=== PATIENT | female | born 1990 | race Caucasian/White ===

== ENCOUNTER → 2019-11-05 12:46 | Outpatient (CLI) | payer OTHER, SELFPAY ==
--- NOTE | ~2019-11-05 | US_ITS ---
EXAMINATION: US OB transvaginal DATE: 11/05/2019 13:19 INDICATION: Uncertain dates. . TECHNIQUE: Real-time transvaginal pelvic ultrasound was performed. COMPARISON: None. FINDINGS: The uterus measures 11.2 x 6.6 x 7.6 cm. There is an intrauterine gestational sac. A yolk sac is iden tified. The crown rump length measures 0.9 cm, which correlates with an estimated gestational age of 6 weeks and 6 day(s) (+/-) 4 day(s). heart motion is identified measuring 122 beats per minute (bpm) by M-mode Doppler. There are 2 small subchorionic hematomas. The right ovary measures 4. 1 x 1.7 x 3.2 cm. The left ovary measures 3.2 x 1.7 x 2.3 cm. There is no free fluid in the pelvis. IMPRESSION: 1. Single living intrauterine gestation with estimated date of delivery of 06/24/2020. 2. Two small subchorionic hematomas. Reviewed, dictated and finalized at location A. IMPRESSION: 1. Single living intrauterine gestation with estimated date of delivery of 06/24. 2. Two small subchorionic hematomas.
== END ==
PROVIDERS: Visit Provider Nurse Practitioner
DX: Z36.87 Encounter for antenatal screening for uncertain dates (principal); Z3A.00 Weeks of gestation of pregnancy not specified; O46.90 Antepartum hemorrhage, unspecified, unspecified trimester
CPT/HCPCS: 76817

== ENCOUNTER → 2019-11-26 14:30 | Outpatient (CLI) | payer OTHER, SELFPAY ==
--- NOTE | ~2019-11-26 | US_ITS ---
EXAMINATION: US OB limited EXAM DATE: 11/26/2019 15:17 INDICATION: Follow-up subchorionic hematoma. 1st trimester. TECHNIQUE: Pelvic obstetrical transabdominal sonogram was performed by a technologist. There are mu ltiple grayscale and Doppler images available for interpretation. Comparison is made to prior examina tion from 11/05/2019. FINDINGS: Uterus measures 13.0 x 7.4 x 9.9 cm. There is intrauterine gestation sac. pole with heart rate confirmed at 162 beats per minute. motion was also observed. There are 2 subchorion ic hematomas, one on the left side measuring 2.7 x 1.2 x 0.7 cm (previously 1.7 x 1.3 x 0.7), and on the superior right measuring 2.4 x 1.4 x 1.3 cm (previously 1.6 x 1.3 x 1.0). IMPRESSION: 2 small subchorionic hematomas, measurements slightly increased along with growth in the viable pole. Reviewed, dictated and finalized at location B. IMPRESSION: 2 small subchorionic hematomas, measurements slightly increased al elva with growth in the viable pole.
== END ==
PROVIDERS: PCP Family Medicine; Visit Provider Obstetrics & Gynecology Gynecology
DX: O46.90 Antepartum hemorrhage, unspecified, unspecified trimester (principal); Z3A.00 Weeks of gestation of pregnancy not specified
CPT/HCPCS: 76815

== ENCOUNTER → 2019-12-25 14:37 | Outpatient (CLI) | payer OTHER, SELFPAY ==
--- NOTE | ~2019-12-25 | US_ITS ---
EXAMINATION: US OB limited DATE: 12/25/2019 15:05 INDICATION: Subchorionic hematoma, second trimester TECHNIQUE: Real-time ultrasound of the pelvis was performed. The interpreting radiologist was not pre sent for the study. COMPARISON: 11/26/2019 FINDINGS: There is a single living fetus. The uterus measures 16.4 x 9.1 x 13.5 cm. The placenta is a nterior. No persistent subchorionic hematoma is identified. cardiac activity and movement are noted. heart rate is 151 beats per minute (bpm). The amniotic fluid index is subjectively normal. IMPRESSION: 1. No persistent subchorionic hematoma identified. Reviewed, dictated and finalized at location A. TRICAL RESEARCH ENGINEER
== END ==
PROVIDERS: Visit Provider Obstetrics & Gynecology Gynecology
DX: O46.90 Antepartum hemorrhage, unspecified, unspecified trimester (principal); Z3A.00 Weeks of gestation of pregnancy not specified
CPT/HCPCS: 76815

== ENCOUNTER → 2020-01-20 15:58 | Outpatient (CLI) | payer OTHER, SELFPAY ==
--- NOTE | ~2020-01-20 | US_ITS ---
EXAMINATION: US OB >= 14 weeks Fetus DATE: 01/20/2020 16:33 INDICATION: survey TECHNIQUE: Multiple obstetric sonographic images performed. FINDINGS: No prior studies for comparison. There is a single living fetus in vertex presentation. The placenta is anterior without placenta pre via. Placental margin is 2.4 cm to the cervix. Amniotic fluid volume is normal. cardiac activity and movement is noted with a heart rate of 159 beats per minute. The following anatomy was identified as normal: 4 chamber heart 3 vessel cord cord insertion kidneys urinary bladder stomach spine diaphragm ventricles cisterna magna cerebellum The upper lip is not visualized. The following biometric data were obtained: BPD: 38mm corresponds to gestational age 17 weeks 5 days. Head circumference: 149 mm corresponds to gestational age 18 weeks 0 days. Abdominal circumference: 126 mm corresponds to gestational age 18 weeks 1 days. Femur length: 25 mm corresponds to gestational age 17 weeks 3 days. Head circumference to abdominal circumference ratio: 1.18 (normal range for expected gestational age is 1.08-1.28). Estimated weight: 212 grams +/- 32 grams using Hadlock method. IMPRESSION: 1: Single living intrauterine with an estimated gestational age of 17weeks 5days by initial ultrasound measurements, with an EDC of 06/24/2020 in 06/24/2020 presentation. 2. Survey limited for evaluation of the upper lip. Otherwise, unremarkable survey. 3: Low-lying anterior placenta measures 2.4 cm to the cervix. Reviewed, dictated and finalized at location B. OGRAPHIC ARTIST IMPRESSION: 1: Single living intrauterine with an estimated gestational age of 17 weeks 5days by initial ultrasound measurements, with an EDC of 06/24/2020 in presentation. 2. Survey limited for evaluation of the upper lip. Otherwise, unremarkable vesna vey. 3: Low-lying anterior placenta measures 2.4 cm to the cervix.
== END ==
PROVIDERS: Visit Provider Obstetrics & Gynecology Gynecology
DX: O44.42 Low lying placenta NOS or without hemorrhage, second trimester (principal); Z3A.17 17 weeks gestation of pregnancy
CPT/HCPCS: 76805

== ENCOUNTER → 2020-02-17 15:50 | Outpatient (CLI) | payer OTHER, SELFPAY ==
--- NOTE | ~2020-02-17 | US_ITS ---
EXAMINATION: US OB limited DATE: 02/17/2020 16:21 INDICATION: Low-lying placenta, second trimester TECHNIQUE: Real-time ultrasound of the pelvis was performed. The interpreting radiologist was not pre sent for the study. COMPARISON: 01/20/2020 FINDINGS: There is a single living fetus in vertex presentation. The placenta is anterior and 11 cm f rom the internal cervical os. cardiac activity and movement are noted. heart rate i s 149 beats per minute (bpm). The amniotic fluid index is subjectively normal. The upper lip ap pears normal. IMPRESSION: 1. Single living fetus in vertex presentation. 2. Normal placenta location. 3. Normal-appearing upper lip. Reviewed, dictated and finalized at location A. LY CHAIN SPECIALIST
== END ==
PROVIDERS: Visit Provider Obstetrics & Gynecology Gynecology
DX: O44.10 Complete placenta previa with hemorrhage, unspecified trimester (principal); Z3A.00 Weeks of gestation of pregnancy not specified
CPT/HCPCS: 76815

== ENCOUNTER 2020-06-05 18:34 | Observation (INO) | payer OTHER, SELFPAY ==
[2020-06-05 18:46] VITALS: BP 132/62; PULSE 140
[2020-06-05 18:50] VITALS: BMI 32.4
[2020-06-05 19:11] VITALS: TEMP 37.1
--- NOTE | 2020-06-05 20:42 | OBADM ---
This patient, Savita Owens, admitted to the OB room Labor/Delivery/Recovery 104 for observation. Patient/family oriented to hospital policies and general routines including ID bracelet, bed and alarms, visiting hours, pain management, procedures, bathroom and other care routines, personal items, smoking policy, room service/diet, and visiting hours. Patient/Family are encouraged to report perceived risks to care and to ask questions if they do not understand what they are told or what they should do.
--- NOTE | 2020-06-14 09:59 | PM.OBTRLD ---
OB - Triage/Final Diagnosis Visit Information Reason for evaluation: other (leaking fluid vaginally) Comments/Additional reasons for admission: I have assessed the risk for this patient, Savita José Miguel Owens, and determined that she would benefit from observation care.
== END 2020-06-05 20:40 | disposition home or self-care (01) ==
PROVIDERS: Admitting Provider Obstetrics & Gynecology Gynecology; PCP Family Medicine; Visit Provider Obstetrics & Gynecology Gynecology
DX: O42.12 Full-term premature rupture of membranes, onset of labor more than 24 hours following rupture (principal); Z3A.37 37 weeks gestation of pregnancy
CPT/HCPCS: 84112; G0378; G0379

== ENCOUNTER 2020-06-06 02:04 | Inpatient (IN) | payer OTHER, SELFPAY ==
[2020-06-06] VITALS (31 sets, daily range): BP systolic 83–148; BP diastolic 44–120; PULSE 67–133; RESP 16–18; TEMP 36.4–37.3; O2SAT 98–100; BMI 32.8
[2020-06-06 02:32] LABS: Basophils Percent Auto 0.1 % (0.2-1.2); Eosinophils Percent Auto 0.2 % (0-4.4); Hemoglobin 10.6 g/dL (12.0-15.0); Immature Granulocyte Absolute 0.07 K/mm3 (0.00-0.031); Immature Granulocyte Percent A 0.7 % (0-0.5); Lymphocytes Absolute Auto 3.93 K/mm3 (0.9-3.2); Lymphocytes Percent Auto 41.5 % (18.3-44.2); Mean Corpuscular HGB Conc 32.1 g/dl (32-36); Mean Corpuscular Volume 80.9 fl (80-100); Mean Platelet Volume 10.1 fl (7.4-10.4); Monocytes Absolute Auto 0.6 K/mm3 (0.1-0.6); Monocytes Percent Auto 6.5 % (2.6-8.5); Neutrophils Absolute Auto 4.8 K/mm3 (1.3-6.7); Platelet Count Result 145 k/mm3 (150-375); Red Blood Count 4.08 M/mm3 (4.2-5.4); Red Cell Distribution Width 14.1 % (11.5-14.5); White Blood Count 9.5 K/mm3 (4.5-10.0)
--- NOTE | 2020-06-06 02:36 | WPDOBADMIT ---
Obstetrics - Admit Note Admission Note: record reviewed. No pertinent additions to the history and/or any subsequent changes in the physical findings that are not consistent with the expected course of the were found. Additions to the history and/or subsequent changes in the physical findings follow. Here at 37 3/7 wks in active labor. 7-8 cm on arrival. On my arrival, offered to AROM and patient would like to try to get epidural first. FHTs reactive.
[2020-06-06] MEDS: LACTATED RINGERS 1,000 ML 125 ML IV CONT (03:04)
--- NOTE | 2020-06-06 03:04 | WPDANESEPP ---
Anes - Eval Pre Procedure Procedure: labor epidural Date/Time: 06/06/20 03:04 Surgeon: luis Pre Op Diagnosis: Ctxns Patient Data Age: 29 Gender: F Height: 1.7 m Weight: 95 kg Last Vital Signs Pulse 99 06/06/20 03:03 BP 120/82 06/06/20 03:03 Pulse Ox 100 06/06/20 03:01 Allergies Allergy/AdvReac Type Severity Reaction Status Date / Time morphine Allergy Unknown Hives Verified 05/25/20 15:35 Sulfa (Sulfonamide Allergy Unknown Unknown Verified 05/25/20 15:35 Antibiotics) Home Medications Medication Instructions Recorded Confirmed Type ergocalciferol (vitamin D2) 1,250 mcg PO 2XW 05/25/20 05/25/20 History [Vitamin D2] prenat.vits,seng,qpk-rdjk-agaoh 1 tablet PO DAILY 05/25/20 05/25/20 History Laboratory Tests 06/06/20 06/06/20 02:26 02:26 WBC 9.5 K/mm3 K/mm3 (4.5-10.0) RBC 4.08 M/mm3 L M/mm3 (4.2-5.4) Hgb 10.6 g/dL L g/dL (12.0-15.0) Hct 33.0 % L % (37.0-47.0) MCV 80.9 fl fl (80-100) MCH 26.0 pg pg (26-34) MCHC 32.1 g/dl g/dl (32-36) RDW 14.1 % % (11.5-14.5) Plt Count 145 k/mm3 L k/mm3 (150-375) MPV 10.1 fl fl (7.4-10.4) Immature Gran % (Auto) 0.7 % H % (0-0.5) Neut % (Auto) 51.0 % % (45.5-73.1) Lymph % (Auto) 41.5 % % (18.3-44.2) [place] % (Auto) 6.5 % % (2.6-8.5) Eos % (Auto) 0.2 % % (0-4.4) Baso % (Auto) 0.1 % L % (0.2-1.2) Lymph # (Auto) 3.93 K/mm3 H K/mm3 (0.9-3.2) [place] # (Auto) 0.6 K/mm3 K/mm3 (0.1-0.6) Eos # (Auto) 0.0 K/mm3 K/mm3 (0-0.3) Baso # (Auto) 0.0 K/mm3 K/mm3 (0.0-0.1) Abs Immat Gran (auto) 0.07 K/mm3 H K/mm3 (0.00-0.031) Absolute Neuts (auto) 4.8 K/mm3 K/mm3 (1.3-6.7) Absolute Nucleated RBC 0.0 K/mm3 K/mm3 (0.0-0.012) Nucleated RBC % 0.0 % % (0.0-0.2) RPR Pending Patient hx anesthesia problems: none Family hx anesthesia problems: none PMFSH Past Medical History Medical History (Updated 06/06/20 @ 03:06 by Veronique Rodriguez CRNA) Migraines Family History Family History (Updated 05/25/20 @ 15:38 by Rhina Pena RN) Mother Patient's mother is in good health Family history of irritable bowel syndrome Family history of migraine headaches Father Patient's father is in good health Sibling Patient's brother is in good health Family history of migraine headaches Social History Social History Smoking status: Never smoker Alcohol intake: never Substance use: never Spiritual care concerns: No Exam Day of Procedure 06/06/20 03:04
[2020-06-06] MEDS: OXYTOCIN 30 UNITS/NS 500 ML 30 UNITS/500 ML BAG 999 UNITS IV CONT (03:17)
--- NOTE | 2020-06-06 03:24 | PM.OBPRVD ---
OB - Delivery Note Procedure Delivery date: 06/06/20 Procedure: Intrapartal events: Abruptio Placenta (noted portwine fluid upon rupture; placental edge with large clot at delivery) Induction method: none Delivery monitor: external FHT and external uterine Route of delivery: Laceration Description: Perineal - 1st Degree Delivery repair: vicryl (3-0) Specimen: Yes (placenta) Quantitative Blood Loss (ml): 100 Anesthesia type: Epidural Disposition: floor Baby Date of : 06/06/20 Weeks of gestation at delivery: 37 Infant gender: Female presentation: vertex position: Left Occiput Anterior Placenta delivery description: Spontaneous (abruption noted) cord vessel description: 3 Vessels score one minute: 8 score five minutes: 9
--- NOTE | 2020-06-06 03:27 | PM.OBDSVD ---
DS: Admitting Diagnosis Admitting Diagnosis Admitting Diagnosis: IUP 37 3/7 wks in labor requests sterilization DS: Discharge Diagnosis Discharge Diagnosis (1) 37 weeks gestation of : Code(s): Z3A.37 - 37 weeks gestation of Status: Acute (2) (normal spontaneous vaginal delivery): Code(s): O80 - Encounter for full-term uncomplicated delivery Status: Inactive (3) Placental abruption: Code(s): O45.90 - Premature separation of placenta, unspecified, unspecified trimester Status: Acute (4) Encounter for sterilization: Code(s): Z30.2 - Encounter for sterilization Status: Acute OB - DS: Summary OB Procedures : Ultrasound OB Procedures Intrapartum: Spontaneous Vag Delivery OB Procedures: : P.P. tubal ligation Peripartum Data Infant Delivery Method: Natural Vaginal Laceration Description: Perineal - 1st Degree complications: none Status at Discharge Functional status at discharge: independent ambulation Overall status at discharge: patient is progressing back to baseline Time Spent with Patient Time attestation: Total time spent providing and/or coordinating discharge services: DS: Data Data Completed and Pending Labs on day of discharge: Labs from last 24 hours 06/06/20 06/06/20 02:26 02:26 WBC 9.5 RBC 4.08 L Hgb 10.6 L Hct 33.0 L MCV 80.9 MCH 26.0 MCHC 32.1 RDW 14.1 Plt Count 145 L MPV 10.1 Immature Gran % (Auto) 0.7 H Neut % (Auto) 51.0 Lymph % (Auto) 41.5 [place] % (Auto) 6.5 Eos % (Auto) 0.2 Baso % (Auto) 0.1 L Lymph # (Auto) 3.93 H [place] # (Auto) 0.6 Eos # (Auto) 0.0 Baso # (Auto) 0.0 Abs Immat Gran (auto) 0.07 H Absolute Neuts (auto) 4.8 Absolute Nucleated RBC 0.0 Nucleated RBC % 0.0 RPR Pending Discharge Plan Discharge Attending physician on discharge: Nadja Flores Consulting providers: Regan Rehman Discharging Clinician: Nadja Flores Anticipated Discharge Date/Time: 06/08/20 07:28 Patient Disposition: Home, Self-Care Activity: may shower, may drive after 2 weeks and pelvic rest Diet: regular Discharge Instructions: Education: Mom and Baby Guide Given to: Mother Follow-Up: Call your delivering provider's office for an appointment to be seen in: 1 Week Mom and baby should come to the [facility] for the follow-up appointment. Appointment Date/Time: June 09, 2020 at 10:00 am What to expect at your follow-up visit: Blood Pressure Check Physical Assessment Call [phone] if you are unable to keep your appointment time. BREAST CARE: * Wear a snug supportive bra. * For engorgement discomfort: Breast Feeding: * Apply warm moist washcloths * Express milk as needed to relieve engorgement * Wear loose clothing Bottle Feeding: * May apply ice packs * For sore nipples: * Identify correct latch-on * Apply warm moist washcloths before and after nursing * Air dry nipples after nursing * May apply Lansinoh cream to nipples ABDOMINAL INCISION: (if applicable) * Allow incision to air dry * Do NOT use lotions for powders on your incision * When showering, allow soap and water to run over the incision, but do not wash incision EPISIOTOMY/PERINEAL CARE: * Until bleeding stops, use your jhonny bottle after urinating * Change your pad frequently throughout the day * You may take sitz baths several times a day (fill your bathtub with warm water and soak for 20 minutes.) Do NOT bathe in the water * No tub baths until seen by your physician - You may shower ACTIVITY: * Rest as much as possible. * Do not exercise or lift anything heavier than your baby (such as laundry or other children.) * Avoid stairs or driving as much as possible. * Do not put anything into the vagina. No douching, [place]
[2020-06-06] MEDS: OXYTOCIN 30 UNITS/NS 500 ML 30 UNITS/500 ML BAG 125 UNITS IV CONT (03:46)
[2020-06-06] MEDS: WITCH HAZEL 40 PADS 1 PAD TOPICAL (04:17)
[2020-06-06] MEDS: LANOLIN (LANSINOH) 7.5 GM CREAM 1 APPLIC TOPICAL (04:17)
[2020-06-06] MEDS: BENZOCAINE 20% AER SPR (*SP) 56 GM CAN 1 SPRAY TOPICAL (04:17)
--- NOTE | 2020-06-06 04:29 | LDADM ---
This patient, Savita Owens, was admitted to Labor/Delivery/Recovery 104 on 06/06/20 at 02:04. Plans for labor, pain management and were discussed with patient. Patient/family oriented to hospital policies and general routines including ID bracelet, bed and alarms, visiting hours, pain management, procedures, bathroom and other care routines, personal items, smoking policy, room service/diet and guest tray routines, infant security routines, and visiting hours. Patient/Family are encouraged to report perceived risks to care and to ask questions if they do not understand what they are told or what they should do. See OBIX for further documentation.
[2020-06-06] MEDS: MULTIVIT/MIN/PREN/FOL AC/IRON TABLET 1 TAB PO (06:06)
[2020-06-06] MEDS: IBUPROFEN 600 MG TABLET PO ×3 (06:07→19:06)
--- NOTE | 2020-06-06 06:28 | OBPPTRN ---
06/06/2020 at 0550 Patient transferred to post room #284. Support person present. Oriented to information and emergency/call light. Patient verbalizes understanding of waiting for a nurse before ambulating.
--- NOTE | 2020-06-06 07:00 | PC.NURSE ---
PT introductions made and plan of care discussed per post , pain management, breast feeding, daily care activities. PT educated through one on one discussion and mother baby care guide. PT and spouse are the recipients. no barriers to learning identified. PT verbalized understanding of such care.
[2020-06-06] MEDS: ACETAMINOPHEN 325 MG TABLET 650 MG PO (09:44)
[2020-06-06] MEDS: DOCUSATE SODIUM 100 MG CAPSULE PO (09:45)
--- NOTE | 2020-06-06 13:59 | WPDANLDPN2 ---
Anes-Prog Note L&D Date/Time: 06/06/20 13:59 Comfortable throughout: labor and delivery Neuraxial method: epidural Epidural/Spinal procedure site: clean & non-tender (epidural still in place for procedure tomorrow 06/07/20) Neuro status: Neuro function grossly intact. Cardiovascular status: normal Respiratory status: normal Airway patency: baseline Mental status: baseline Post-Op hydration status: normal Vital Signs: Last Vital Signs Temp 36.9 C 06/06/20 12:30 Pulse 78 06/06/20 12:30 Resp 18 06/06/20 12:30 BP 104/63 06/06/20 12:30 Pulse Ox 98 06/06/20 12:30 Pain score (VAS): 1 I/O: Intake & Output 06/05/20 06/06/20 06/06/20 23:59 07:59 15:59 Output Total 120 Balance -120 Post-procedural complaints: none Patient feedback: Patient satisfied with anesthetic care. epidural was still in place for a procedure patient will have on 06/07/20
[2020-06-07] VITALS (14 sets, daily range): BP systolic 96–124; BP diastolic 57–81; PULSE 60–89; RESP 14–18; TEMP 36.2–37; O2SAT 96–100
[2020-06-07 05:33] LABS: Hematocrit 28.4 % (37.0-47.0)
[2020-06-07 06:39] LABS: Rapid Plasma Reagin Non-Reactive (NonReactive)
--- NOTE | 2020-06-07 07:34 | PC.NURSE ---
Pt. transferred to pre-op per stretcher for bilateral tubal ligation. All consents signed. Pt. comfortable. No questions or concerns voiced.
[2020-06-07] MEDS: LACTATED RINGERS 1,000 ML 30 ML IV CONT ×3 (07:45→09:48)
--- NOTE | 2020-06-07 07:48 | WPDANESEFPP ---
Anes - Eval Final PreProcedure Day of Procedure 06/07/20 07:48 Patient weight: obese Heart: regular rate and rhythm Lungs: clear to auscultation Airway: Mallampati scale class 1 Neurological: alert and oriented Last oral intake: >/= 8 hours ASA classification: II Emergent: no Anesthetic plan: proceed Anesthesia type and monitoring: regional (existing, 11 cm at skin confirmed) epidural and standard monitoring Informed Consent: The patient's anesthetic plan of using existing epidural and its attendant risks and benefits were discussed with the patient/family/POA. Questions were solicited and answers provided to the satisfaction of the patient/family/POA.
--- NOTE | 2020-06-07 07:53 | WPDANLDPN2 ---
Anes-Prog Note L&D Date/Time: 06/07/20 07:53 Comfortable throughout: labor and delivery Neuraxial method: epidural Epidural/Spinal procedure site: clean & non-tender (epidural still in place for procedure tomorrow 06/07/20) Neuro status: Neuro function grossly intact. Cardiovascular status: normal Respiratory status: normal Airway patency: baseline Mental status: baseline Post-Op hydration status: normal Vital Signs: Last Vital Signs Temp 36.8 C 06/07/20 07:31 Pulse 60 06/07/20 07:31 Resp 18 06/07/20 07:31 BP 108/71 06/07/20 07:31 Pulse Ox 99 06/07/20 07:31 Pain score (VAS): 0 Post-procedural complaints: none Patient feedback: Patient satisfied with anesthetic care.
--- NOTE | 2020-06-07 08:03 | PM.IMHP ---
H&P: HPI History of Present Illness Date/Time: 06/07/20 08:03 Patient is a 29 yo who is PPD1 and requests sterilization. Patient informed of the permanent, irreversible nature of pp tubal. Risks of infection, bleeding, injury to internal organs as well as risk of failure with increased ectopic were reviewed. Patient agrees to proceed. Chief Complaint: requests steriliaztion Review of Systems Review of Systems: Narrative: not repeated day of surgery; patient states no changes in status PMFSH Past Medical History Medical History (Updated 06/07/20 @ 08:06 by Nadja Flores MD) Depression Kidney stone Migraines (normal spontaneous vaginal delivery) x 5 Surgical History Surgical History (Updated 06/07/20 @ 08:06 by Nadja Flores MD) S/P laparoscopic cholecystectomy Family History Family History (Updated 05/25/20 @ 15:38 by Rhina Pena RN) Mother Patient's mother is in good health Family history of irritable bowel syndrome Family history of migraine headaches Father Patient's father is in good health Sibling Patient's brother is in good health Family history of migraine headaches Social History Social History Smoking status: Never smoker Alcohol intake: never Substance use: never Spiritual care concerns: No Meds Home Medications and Allergies Home Medications Medication Instructions Recorded Confirmed Type ergocalciferol (vitamin D2) 1,250 mcg PO 2XW 05/25/20 05/25/20 History [Vitamin D2] prenat.vits,seng,tip-ufcp-bsxmc 1 tablet PO DAILY 05/25/20 05/25/20 History Allergies Allergy/AdvReac Type Severity Reaction Status Date / Time morphine Allergy Unknown Hives Verified 05/25/20 15:35 Sulfa (Sulfonamide Allergy Unknown Unknown Verified 05/25/20 15:35 Antibiotics) Vital Signs Vital Signs - 24 hr 06/06/20 09:44 06/06/20 12:30 06/06/20 19:00 Temperature 99.1 F 98.5 F 97.9 F Pulse Rate 92 78 80 Respiratory Rate 18 18 16 Blood Pressure 114/71 104/63 109/76 Pulse Oximetry 99 98 100 06/07/20 00:00 06/07/20 07:31 06/07/20 07:41 Temperature 97.8 F 98.2 F 97.2 F L Pulse Rate 69 60 72 Respiratory Rate 16 18 16 Blood Pressure 100/64 108/71 109/73 Pulse Oximetry 98 99 100 Exam Const: General: comfortable and no acute distress GI: GI Palp: No abdominal tenderness, Yes Soft to palpation and Yes Other GI palpation findings present (fundus firm U-2) H&P: Results Labs Labs: Short CBC 06/07/20 Range/Units 04:24 Hgb 9.0 L (12.0-15.0) g/dL Hct 28.4 L (37.0-47.0) % Assessment and Plan Assessment and plan (1) Encounter for sterilization: Code(s): Z30.2 - Encounter for sterilization Status: Acute Assessment and Plan: will proceed with tubal ligation
--- NOTE | 2020-06-07 08:08 | WPDHPUPDATE1 ---
History and Physical Update Update Date/Time: 06/07/20 08:08 History and Physical has been reviewed, including an updated exam of the patient. There are NO changes in the patient's condition. Risks, benefits, and alternatives have been discussed and questions answered. Patient agrees to proceed with procedure.
--- NOTE | 2020-06-07 09:36 | PM.PROC ---
Procedure Note - Detailed Date of procedure: 06/07/20 Pre-op diagnosis: Ctxns requests sterilization Post-op diagnosis: same Procedure performed: PP BTL Description of procedure: The patient was taken to the operating room and placed under epidural anesthesia. She was prepped and draped in the usual sterile fashion in the dorsal supine position. Once anesthesia was deemed adequate, a vertical skin incision was made at the base of the umbilicus. This incision was carried down to the underlying layer of fascia which was grasped with an Thumbtacksner x2 and entered with Lugo scissors. The incision is extended superiorly and inferiorly. The peritoneum was tented and entered with Metzenbaum is a the incision is extended with blunt traction. The retractors are placed intraperitoneally and the right tube identified, grasped with a Bree, and the distal 2/3 of the tube are crossclamped with a Z clamp. The tube is excised. The pedicle was tied off using 0 Vicryl in a Kory stitch. The identical procedure was performed on the left side. Good hemostasis is noted at both tubal sites. The fascia is closed using 0 Vicryl in a running fashion. Subcutaneous tissues were made hemostatic using Bovie. Skin incision is closed with 4 0 Vicryl in a subcuticular fashion and Dermaflex was placed over the incision. Sponge, needle, and instrument counts are correct per the OR staff. Patient was taken to recovery in stable condition. Anesthesia: epidural Surgeon: Nadja Flores MD Estimated blood loss (mL): 5 Drains: No Packing: No Pathology: yes (bilateral tubes) Complications: No immediate complications Condition: stable Disposition: PACU Findings: normal appearing tubes and ovaries
--- NOTE | 2020-06-07 11:05 | PC.NURSE ---
Pt. return from PACU per stretcher.
[2020-06-07] MEDS: ACETAMINOPHEN 325 MG TABLET 650 MG PO (11:48)
[2020-06-07] MEDS: IBUPROFEN 600 MG TABLET PO ×2 (11:49→17:58)
[2020-06-07] MEDS: BENZOCAINE 20% AER SPR (*SP) 56 GM CAN 1 SPRAY TOPICAL (11:51)
[2020-06-07] MEDS: WITCH HAZEL 40 PADS 1 PAD TOPICAL (11:51)
[2020-06-07] MEDS: HYDROcodone/acetaminophen (*CRX) 10-325 MG TABLET 1 TAB PO (13:25)
--- NOTE | 2020-06-07 15:00 | PC.NURSE ---
Patient was given the opportunity to view the discharge video Mother & Baby Care, The First Two Weeks and to ask questions. Patient declined viewing the video and has been given the mother/baby guide for home reference.
--- NOTE | 2020-06-07 16:44 | PC.NURSE ---
Self care and infant care discharge instructions given including follow up visit date and time. Mother verbalized understanding. No questions or concerns voiced. at side.
[2020-06-07] MEDS: DOCUSATE SODIUM 100 MG CAPSULE PO (17:58)
[2020-06-07] MEDS: HYDROcodone/acetaminophen (*CRX) 5-325 MG TABLET 1 TAB PO (17:58)
[2020-06-07] MEDS: SIMETHICONE 80 MG TAB.CHEW PO (17:58)
[2020-06-09 10:25] VITALS: BP 110/72; PULSE 77; RESP 18; TEMP 36.9; O2SAT 100
== END 2020-06-07 18:12 | disposition home or self-care (01) | DRG 796 ==
LOC: ANHLDR 03:29 → ANHOB2 05:52
PROVIDERS: Admitting Provider Obstetrics & Gynecology Gynecology; PCP Family Medicine; Visit Provider Obstetrics & Gynecology Gynecology
PROC: 0UB70ZZ Excision of Bilateral Fallopian Tubes, Open Approach (ICD-10-PCS; CPT 58605; principal; 2020-06-07 09:00)
DX: O62.3 Precipitate labor (principal); O45.93 Premature separation of placenta, unspecified, third trimester; Z37.0 Single live birth; Z3A.37 37 weeks gestation of pregnancy; O70.0 First degree perineal laceration during delivery; Z30.2 Encounter for sterilization; O99.214 Obesity complicating childbirth; E66.9 Obesity, unspecified
CPT/HCPCS: 36415; 84112; 85014; 85018; 85025; 86592; 86850; 86900; 86901; 88302; 88307; A9270; G0378; G0379; J2250; J2590; J2704; J2795; J3010; J7120

== ENCOUNTER 2022-05-08 09:19 | Outpatient (CLI) | payer OTHER, SELFPAY ==
--- NOTE | ~2022-05-08 | XR_ITS ---
EXAM: XR abdomen obstructive series DATE: 05/08/2022 09:59 HISTORY: R10.9 - Unspecified abdominal pain . COMPARISON: None available. FINDINGS: Cholecystectomy clips Clear lung bases. Normal bowel gas pattern. No organomegaly. 4 and 14 mm calcifications project over the left renal shadow Faint pelvic phleboliths. Regional bones and so ft tissues normal for age. IMPRESSION: Left nephrolithiasis, otherwise normal x-ray abdomen findings. Reviewed, dictated and finalized at location K.
== END 2022-05-08 09:20 ==
PROVIDERS: PCP Family Medicine; Visit Provider Family Medicine
DX: R10.9 Unspecified abdominal pain (principal); N20.0 Calculus of kidney
CPT/HCPCS: 74019

== ENCOUNTER 2022-05-12 16:33 | Outpatient (CLI) | payer OTHER, SELFPAY ==
--- NOTE | ~2022-05-12 | CT_ITS ---
EXAMINATION: CT abdomen pelvis wo con DATE: 05/12/2022 16:55 INDICATION: Left flank pain TECHNIQUE: Computed tomography (CT) of the abdomen and pelvis was performed without intravenous contr ast. Automated exposure control and iterative reconstruction technique were employed. Exam dose: 116 1.58 mGy-cm total exam DLP. COMPARISON: 05/08/2022 obstructive series FINDINGS: The lung bases are clear. Normal heart size. No pericardial or pleural effusion. Status post cholecystectomy. The liver, spleen, pancreas and adrenal glands are unremarkable. 3 mm nonobstructing right renal calculus. Up to 6 x 7.6 x 14 mm IMPRESSION: Reviewed, dictated and finalized at [facility]. Reviewed, dictated and finalized at location A. IMPRESSION:
== END 2022-05-12 16:34 | disposition home or self-care (01) ==
PROVIDERS: PCP Family Medicine; Visit Provider Family Medicine
DX: R10.9 Unspecified abdominal pain (principal); N20.0 Calculus of kidney
CPT/HCPCS: 74176

== ENCOUNTER 2022-06-29 15:34 | Outpatient (CLI) | payer OTHER, SELFPAY ==
--- NOTE | ~2022-06-29 | XR_ITS ---
XR abdomen/kub 1V 06/29/2022 15:51 Indication: Right renal stone Procedure: KUB Comparison: 05/08/2022 Findings: Bowel gas pattern is nonobstructive. There are stable left renal stones. There are cholecys tectomy clips. No acute osseous abnormality. Impression: 1: No acute abdominal abnormality. 2: Left nephrolithiasis. Reviewed, dictated and finalized at location L. Impression: 1: No acute abdominal abnormality. 2: Left nephrolithiasis.
== END 2022-06-29 15:35 | disposition home or self-care (01) ==
PROVIDERS: PCP Family Medicine; Visit Provider Nurse Practitioner Adult Health
DX: N20.0 Calculus of kidney (principal)
CPT/HCPCS: 74018

== ENCOUNTER 2022-07-07 02:09 | Day surgery (SDC) | payer OTHER, SELFPAY ==
[2022-07-03 15:53] VITALS: BMI 35.2
--- NOTE | 2022-07-03 15:56 | PC.NURSE ---
Report to the Outpatient Waiting Room, entrance under the green pavilion located off [facility], at time 10:30 on date 07/07/22. Planned Procedure Time: 12:30. Time changes happen often and if your time is changed the preop area will call you the afternoon before. - You and your visitor will be asked to self-screen and do not enter if you have any COVID symptoms. - A mask is optional within the hospital at this time. Patients may have clear liquids (water, carbonated beverages, clear teas, apple juice) until 3 hours prior to surgery with a maximum of 20 ounces. - No food from midnight until time of surgery Take the following medications with a SIP of water the morning of surgery: TRAMADOL DO NOT STOP ANY OF YOUR OTHER PRESCRIPTION MEDICATIONS PRIOR TO SURGERY?EXCEPT THE FOLLOWING Medications to discontinue per physician: N/A Date to take last dose: N/A Please no make-up, nail tajik, hairspray, perfume, deodorant, or body powder the day of surgery. No jewelry (including any body piercings) or valuables the day of surgery, leave them at home. Please take a shower or bath the night before, or the morning of, surgery with an antibacterial soap. Wear comfortable, loose fitting clothing. - Jewelry must be removed prior to entering the operating room. Rings and piercings that are not removed may be cut off. - The hospital will not accept responsibility for valuables. - Please leave all valuables, including medications, at home the day of surgery. If you are going home after surgery, a licensed transit driver must drive you home. - NO public transportation without another adult if you receive anesthesia. - We recommend that an adult stay with you for 24 hours following discharge. - We also recommend that you do not drive, make important decision, drink alcoholic beverages, or take any drugs that were not prescribed by your health care provider for at least 24 hours after your discharge time. Follow any additional instructions given to you from your surgeon. If you or anyone in your household have experienced Covid symptoms in the past week, please notify your surgeon or the nurse liaison at the phone number below for possible testing. Telephone instructions given to PT - NOELLE HLAE and asked if any additional questions and then verbalized understanding. Patient advised to call surgeon office or pre surgery nurse liaison [phone] if any additional questions.
--- NOTE | 2022-07-06 09:38 | P.PNAN_ITS ---
Anes - Initial Pre Proc Eval Procedure: Operation Date: 07/07/22 12:30 Proposed Procedures p Left Extracorporeal Shock Wave Lithotripsy - Freddy Walters MD Date/Time: 07/06/22 09:38 Surgeon: Freddy Walters MD Pre Op Diagnosis: Lt Renal Stone Patient Data Age: 31 Gender: F Height: 1.7 m Weight: 102.1 kg Allergies Allergy/AdvReac Type Severity Reaction Status Date / Time morphine Allergy Intermediate Hives Verified 07/07/22 06:43 Sulfa (Sulfonamide Allergy Intermediate Hives Verified 07/07/22 06:43 Antibiotics) Home Medications Medication Instructions Recorded Confirmed Type tramadol 50 mg tablet 50 mg PO Q6H PRN pain #90 tabs 04/21/22 07/03/22 Rx Patient hx anesthesia problems: none Family hx anesthesia problems: none Results Review: All pre-operative results and documents have been reviewed as part of the pre- operative evaluation. PMFSH Past Medical History Medical History (Updated 07/07/22 @ 07:21 by Danilo Campo DO) Depression Gestational diabetes Kidney stone Migraines (normal spontaneous vaginal delivery) x 5 Surgical History Surgical History (Updated 05/04/22 @ 23:01 by Shwetha Haney MD) S/P laparoscopic cholecystectomy Tubal ligation status Family History Family History Mother Patient's mother is in good health Family history of irritable bowel syndrome Family history of migraine headaches Father Patient's father is in good health Sibling Patient's brother is in good health Family history of migraine headaches Social History Social History (Updated 05/04/22 @ 15:57 by Meme Cool) Social History: Smoking status: Never smoker Second hand tobacco smoke exposure: No Alcohol intake: never Substance use: never Substance use type: does not use Lack of Transportation: No Lack of Food: Never True Current Housing: I Have Housing Concerned About Future Housing: No Difficulty Paying Gas/Electric Bills: No Difficulty Paying for Meds: No Currently Unemployed: YES Education: Decline to Answer Difficulty w/ Childcare or Family Care: No Living arrangements: with family Occupation/Education: unemployed Gender identity (if verbalized by the patient): Female Sexual Orientation (if Verbalized by the Patient): Straight or Heterosexual Spiritual care concerns: No Anes - Eval Final PreProcedure Day of Procedure 07/06/22 09:38 Patient weight: obese Heart: regular rate and rhythm Lungs: clear to auscultation Airway: Mallampati scale class II Neurological: alert and oriented Last oral intake: >/= 8 hours ASA classification: II Emergent: no Anesthetic plan: proceed Anesthesia type and monitoring: general LMA and standard monitoring Results Review: All pre-operative results and documents have been reviewed as part of the pre- operative evaluation. Informed Consent: The patient's anesthetic plan and its attendant risks and benefits were discussed with the patient/family/POA. Questions were solicited and answers provided to the satisfaction of the patient/family/POA.
[2022-07-07] VITALS (8 sets, daily range): BP systolic 100–120; BP diastolic 59–89; PULSE 60–95; RESP 14–20; TEMP 36.4–36.6; O2SAT 100
--- NOTE | ~2022-07-07 | XR_ITS ---
Supine and upright views of the abdomen Clinical history: Lithotripsy COMPARISON: 06/29/2022 Findings: Bowel gas pattern is nonspecific. No evidence for obstruction or free air. There are bilate ral renal stones present, left larger than right, probably stable from prior exam. Largest stone is o n the left side measuring 8-9 mm.. Osseous structures are intact. Impression: Probable bilateral nephrolithiasis, left worse than right, as detailed above. Reviewed, dictated and finalized at location . Impression: Probable bilateral nephrolithiasis, left worse than right, as detailed above.
[2022-07-07] MEDS: LACTATED RINGERS 1,000 ML 30 ML IV CONT (06:45)
--- NOTE | 2022-07-07 06:47 | WPDHPUPDATE1 ---
History and Physical Update Update Date/Time: 07/07/22 06:47 History and Physical has been reviewed, including an updated exam of the patient. There are NO changes in the patient's condition. Risks, benefits, and alternatives have been discussed and questions answered. Patient agrees to proceed with procedure.
[2022-07-07 06:54] LABS: INR 0.9; Partial Thromboplastin Time 29.1 SECONDS (22.3-36.8); Prothrombin Time 12.2 Seconds (11.1-14.7)
--- NOTE | 2022-07-07 07:44 | W.PM.PROC2 ---
Procedure Note - Detailed Date of Procedure 07/07/22 Pre-op Diagnosis Lt Renal Stone Post-op Diagnosis Same Procedure Performed Left ESWL Surgeon Freddy Walters MD Anesthesia General Description of Procedure The patient was brought to the operative suite where she was placed in the supine position on the Dornier lithotripsy table. The focal point of the lithotripter was placed at a 8mm left renal calculus. A total of 2500 shocks were delivered at a power setting of 4. There appeared to be good fragmentation of the stone. The patient tolerated the procedure well and was taken to the recovery room in good condition. Drains No Packing Yes Pathology None sent Complications No immediate complications Condition Stable
== END 2022-07-07 09:50 | disposition home or self-care (01) ==
PROVIDERS: PCP Family Medicine; Visit Provider Urology
PROC: (CPT 50590; principal; 2022-07-07 07:30)
DX: N20.0 Calculus of kidney (principal)
CPT/HCPCS: 50590; 36415; 74018; 85610; 85730; J1100; J2250; J2405; J2704; J3010; J7120

== ENCOUNTER 2022-07-21 13:48 | Outpatient (CLI) | payer OTHER, SELFPAY ==
--- NOTE | ~2022-07-21 | XR_ITS ---
EXAMINATION: XR abdomen/kub 1V INDICATION: Urolithiasis status post recent lithotripsy TECHNIQUE: Supine views of the abdomen were obtained on 2 radiographs. COMPARISON: 07/07/2022 FINDINGS: Previously described left nephrolithiasis is no longer evident, consistent with interval li thotripsy. There appears to be a stable 3 mm stone of the right mid kidney. No stones are identified in the ureters or bladder. Surgical clips in the right upper quadrant are likely from prior cholecyst ectomy. The bowel gas pattern is normal. IMPRESSION: 1. Changes of interval lithotripsy of the left-sided kidney stones. 2. Right nephrolithiasis. Reviewed, dictated and finalized at location B.
== END 2022-07-21 13:49 | disposition home or self-care (01) ==
PROVIDERS: PCP Family Medicine; Visit Provider Urology
DX: N20.0 Calculus of kidney (principal)
CPT/HCPCS: 74018

== ENCOUNTER 2023-01-13 08:42 | Outpatient (CLI) | payer OTHER, SELFPAY ==
--- NOTE | ~2023-01-13 | XR_ITS ---
EXAM: XR knee LT 3V DATE: 01/13/2023 09:07 HISTORY: LEFT CENTRAL KNEE PAIN 1 WK CANT BEAR WEIGHT NO INJURY . COMPARISON: None available. FINDINGS: Normal mineralization. No fracture or dislocation. No lytic or blastic lesion. Mild tricom partmental osteophytosis. No erosion or periosteal change. Soft tissues within normal limits. IMPRESSION: No acute osseous finding the left knee. Reviewed, dictated and finalized at location K. [employer]
== END 2023-01-13 08:43 | disposition home or self-care (01) ==
LOC: ANHIMG 08:45
PROVIDERS: PCP Family Medicine; Visit Provider Family Medicine
DX: M25.562 Pain in left knee (principal)
CPT/HCPCS: 73562